=== PATIENT | male | born 1980 | race African-American/Black ===

== ENCOUNTER 2025-01-06 21:44 | Observation (INO) | payer OTHER ==
[2025-01-06 22:21] LABS: #Basophils Less than 0.03 10x3/uL (0.0-0.2); #Eosinophils 0.11 10x3/uL (0.0-0.7); #Monocytes 0.44 10x3/uL (0.11-0.59); #Neutrophils 1.66 10x3/uL (1.40-6.50); %Basophils 0.5 % (0.0-1.0); %Eosinophils 2.5 % (0.0-10.0); %Lymphocytes 48.3 % (21.0-51.0); %Monocytes 10.2 % (0.0-10.0); %Neutrophils 38.3 % (42.0-75.0); Hematocrit 47.7 % (42.0-52.0); Hemoglobin 15.8 g/dL (14.0-18.0); Mean Corpuscular Hemoglobin 28.0 pg (27.0-31.0); Mean Corpuscular Volume 84.6 fL (78.0-98.0); Platelet Count 201 10x3/uL (130-400); Red Blood Cell (RBC) Count 5.64 mill/uL (4.70-6.10); White Blood Cell (WBC) Count 4.33 10x3/uL (4.8-10.8)
[2025-01-06 22:26] LABS: Actual Bicarbonate (HCO3v) 23.9 mEq/L (22-28); Base Excess -1.1 mEq/L (-2.0 to +3.0); Calcium, Ionized (venous) 1.10 mmol/L (1.16-1.32); Chloride (VBG) 102 mmol/L (98-106); Hematocrit-VBG 48 % (42.0-52.0); Hemoglobin (Hb) 16.3 g/dL (13.1-17.2); Potassium (VBG) 4.27 mmol/L (3.70-5.30); Sodium 142 mmol/L (133-146)
[2025-01-06 22:34] LABS: INR-International Normal Ratio 1.0; Prothrombin Time 12.7 sec (12.0-14.7)
[2025-01-06 22:35] LABS: PTT 28.4 sec (22.9-36.1); Troponin I Less than 0.010 ng/mL (< 0.028)
[2025-01-06 22:42] LABS: ALT (SGPT) 30 U/L (Less than 45); AST (SGOT) 31 U/L (11-34); Albumin 4.5 g/dL (3.1-4.5); Alkaline Phosphatase 74 U/L (40-110); Anion Gap 15 mmol/L (10-20); BUN (Urea Nitrogen) 13 mg/dL (8.9-20.6); Bilirubin, Total 0.6 mg/dL (0.3-1.2); Calc. Creatinine Clearance 0 mL/min (70-130); Calcium 9.4 mg/dL (7.8-10.44); Carbon Dioxide 25 mmol/L (22-29); Chloride 104 mmol/L (98-107); Globulin 3.2 g/dL (2.4-3.5); Glucose 102 mg/dL (70-105); Potassium 4.2 mmol/L (3.5-5.1); Sodium 140 mmol/L (136-145)
[2025-01-06 23:53] LABS: CK (CPK) 959 U/L (30-200); Lipase 22 U/L (8-78); Magnesium 2.1 mg/dL (1.6-2.6)
[2025-01-07] MEDS ORDERED: Senokot S 8.6-50 MG TAB PO PRN (02:34)
[2025-01-07 04:07] VITALS: BMI 33.4
[2025-01-07] MEDS ORDERED: Ondansetron PF 4 MG/2 ML Vial IVP PRN (04:13)
[2025-01-07 05:01] LABS: #Basophils Less than 0.03 10x3/uL (0.0-0.2); #Eosinophils 0.09 10x3/uL (0.0-0.7); #Monocytes 0.48 10x3/uL (0.11-0.59); #Neutrophils 1.59 10x3/uL (1.40-6.50); %Basophils 0.2 % (0.0-1.0); %Eosinophils 2.1 % (0.0-10.0); %Lymphocytes 48.2 % (21.0-51.0); %Monocytes 11.4 % (0.0-10.0); %Neutrophils 37.9 % (42.0-75.0); Hematocrit 44.5 % (42.0-52.0); Hemoglobin 14.2 g/dL (14.0-18.0); Mean Corpuscular Hemoglobin 27.3 pg (27.0-31.0); Mean Corpuscular Volume 85.6 fL (78.0-98.0); Platelet Count 193 10x3/uL (130-400); Red Blood Cell (RBC) Count 5.20 mill/uL (4.70-6.10); White Blood Cell (WBC) Count 4.21 10x3/uL (4.8-10.8)
[2025-01-07 05:08] LABS: ALT (SGPT) 27 U/L (Less than 45); AST (SGOT) 27 U/L (11-34); Acetaminophen Less than 10 mcg/mL (Less than 10); Albumin 3.9 g/dL (3.1-4.5); Alkaline Phosphatase 64 U/L (40-110); Anion Gap 14 mmol/L (10-20); BUN (Urea Nitrogen) 10 mg/dL (8.9-20.6); Bilirubin, Total 0.7 mg/dL (0.3-1.2); Calc. Creatinine Clearance 171 mL/min (70-130); Calcium 8.3 mg/dL (7.8-10.44); Carbon Dioxide 23 mmol/L (22-29); Cardiac Risk 5.3 (Less than 4.5); Chloride 103 mmol/L (98-107); Cholesterol 202 mg/dl (< 200 Desired); Globulin 2.6 g/dL (2.4-3.5); Glucose 90 mg/dL (70-105); HDL Cholesterol 38 mg/dL (>60 Neg Risk); LDL Cholesterol, Calculated 132 mg/dL; Potassium 4.1 mmol/L (3.5-5.1); Salicylate Less than 8.0 mg/dL (Less than 8.0); Sodium 136 mmol/L (136-145); Triglycerides 160 mg/dL (Less than 150)
[2025-01-07 08:38] LABS: Bacteria/HPF None Seen HPF (None Seen); CAUTI Indications for Culture Alt mental st,lethar; Glucose, Urine (Dipstick) Normal (Negative); Leukocyte Negative Leu/uL (Negative); Protein, Urine (Dipstick) Negative (Neg-Trace); RBC/HPF 0-3 HPF (0-3); Specific Gravity, Urine 1.040 (1.002-1.036); WBC/HPF 0-3 HPF (0-3)
[2025-01-07 08:40] LABS: Urine Culture Reflex No No
[2025-01-07 08:49] LABS: Cocaine Metabolite Screen Negative (Negative); THC/Cannabinoid Screen Negative (Negative); Tricyclic Screen Negative (Negative)
[2025-01-07] MEDS ORDERED: Pantoprazole 40 MG VIAL IVP SCH (09:00)
[2025-01-07] MEDS: Enoxaparin 40 MG (0.4 mL) SYRINGE SC SCH (10:06)
[2025-01-07] MEDS ORDERED: Iopamidol-370 76% 500 ML MDV (1 ML CHARGE) ONE (13:28)
[2025-01-07 21:25] VITALS: BP 156/70; TEMP 98
== END 2025-01-07 22:20 | disposition home or self-care (01) ==
LOC: ERS 21:44 → 2SE 01-07 02:12
PROVIDERS: ADMIT Student in an Organized Health Care Education/Training Program; ATTEND Student in an Organized Health Care Education/Training Program
PROC: B24BZZZ Ultrasonography of Heart with Aorta (ICD-10-PCS; principal; 2025-01-07)
DX: G93.41 Metabolic encephalopathy (principal); R59.0 Localized enlarged lymph nodes; R74.8 Abnormal levels of other serum enzymes; I45.10 Unspecified right bundle-branch block; I49.1 Atrial premature depolarization; F17.200 Nicotine dependence, unspecified, uncomplicated
CPT/HCPCS: 0042T; 36415; 36416; 70450; 70496; 70498; 70551; 71045; 80053; 80061; 80306; 80307; 81001; 82550; 82805; 83036; 83605; 83690; 83735; 83880; 84146; 84443; 84484; 85025; 85610; 85730; 87040; 93005; 93010; 93306; 93970; 94760; 96360; 96372; G0378; J1650; J7120; Q9967